=== PATIENT | male | born 1970 | race Caucasian/White ===

== ENCOUNTER 2018-10-27 18:20 | Emergency (ER) | payer BC, OTHER ==
[2018-10-27] MEDS ORDERED: IBUPROFEN 600 MG TAB PO ONE ×2 (19:04→19:08)
--- NOTE | 2018-10-27 19:06 | EDPHY ---
H & P Stated Complaint: fall, L knee, elbow and face injury Time Seen by Provider: 10/27/18 19:06 HPI/ROS: HPI: This is a 48-year-old male who presents with Chief Complaint: Fall on the ice, eyebrow laceration, left knee injury, left elbow injury Location: Eyebrow, left knee, left elbow Quality: Injury Duration: 1 hr prior to arrival Signs and Symptoms: No bleeding, + radiation, no numbness, no weakness, no tingling, no incontinence, + decreased range of motion, no swelling, + pain, no fever Timing: Acute Severity: Moderate Context: Patient is right-hand dominant presents with accidentally slipping on the ice on the way to his daughter's concert and falling directly onto his left elbow, left knee and left zoroastrianism. Denies LOC/neck pain/dizziness/nausea/ vomiting/amnesia. Patient reports that he "was dazed" for a few seconds but had no loss of consciousness. Patient was ambulatory at the scene and called his . Patient reports that he has an aching headache over his left eye/ zoroastrianism area but not the worse headache of his life and no thunderclap symptoms. Denies any neck pain or decreased range of motion. No history of concussions in the past. Patient complains of pain in his left elbow with swelling and radiation of the pain down into his left hand. Patient also complains of pain in his left knee with decreased range of motion with accompanied stiffness and swelling. Patient reports pain is increased with weight-bearing on the left lower extremity. Reports tetanus is current. Modifying Factors: Direct pressure Comment: ROS: A comprehensive 10 system review of systems is otherwise negative aside from elements mentioned in the history of present illness. MEDICAL/SURGICAL/SOCIAL HISTORY: pmh- hemochromatosis psh- liver biopsy Social history: , employed, denies drug/alcohol/tobacco use CONSTITUTIONAL: Well-developed, well-nourished talkative middle-aged white male , awake and alert, no obvious distress HEENT: 1/4 cm linear, superficial, simple laceration in left eyebrow with no active bleeding. normocephalic, PERRL, EOMI. no globe entrapment, no raccoon eyes. no Moraes signs. Supra left orbital swelling and bruising noted. Able to open eyes fully. Tympanic membranes clear. No tympanic membrane rupture. Nares patent; no septal hematoma. Oropharynx clear, no exudate and moist pink mucosa. No malocclusion. no dental trauma. Airway patent. No lymphadenopathy. NECK: supple, no midline tenderness, flexion 45 degrees, extension 45 degrees, right and left lateral flexion 45 degrees. No meningismus. Cardiovascular: Normal S1/S2, regular rate, regular rhythm, without murmur rub or gallop. PULMONARY/CHEST: Symmetrical and nontender. no crepitus. Clear to auscultation bilaterally. Good air movement. No accessory muscle usage. ABDOMEN: Soft, nondistended, nontender, no ecchymosis, no rebound, no guarding , no peritoneal signs, no masses or organomegaly. No CVAT. PELVIC: no pain with rocking; bilateral hips flexion 125 degrees, extension 30 degrees, with no pain internal rotation and no pain external rotation. BACK: No midline tenderness, no paraspinous spasm, deep tendon reflexes 2/2, no pain with straight leg raise EXTREMITIES: 2/2 pulses, left ELBOW: Full extension to 180, flexion to 90, moderate tenderness over medial epicondyle, moderate tenderness over lateral epicondyle, moderate effusion. Left KNEE: Moderate effusion, no medial and lateral joint line tenderness, full extension to 180, flexion to 120. No pain with varus and valgus exam. No pain with anterior drawer or posterior drawer test. Extensor mechanism intact. no deformities, no clubbing, no cyanosis or edema. NEUROLOGICAL: no focal neuro deficits. GCS 15. SKIN: Warm and dry, no erythema. no rash. Good capillary refill. Source: Patient, Family () Exam Limitations: No limitations - Personal History Current Tetanus/Diphtheria Vaccine: Yes Current Tetanus Diphtheria and Acellular Pertussis (TDAP): Yes - Medical/Surgical History Hx Asthma: No Hx Chronic Respiratory Disease: No Hx Diabetes: No Hx Cardiac Disease: No Hx Renal Disease: No Hx Cirrhosis: No Hx Alcoholism: No Hx HIV/AIDS: No Hx Splenectomy or Spleen Trauma: No Other PMH: pmh- hemochromatosis. psh- liver biopsy - Social History Smoking Status: Never smoked Constitutional: Initial Vital Signs Temperature (C) 36.9 C 10/27/18 18:32 Heart Rate 63 10/27/18 18:32 Respiratory Rate 16 10/27/18 18:32 Blood Pressure 153/88 H 10/27/18 18:32 O2 Sat (%) 95 10/27/18 18:32 O2 Delivery Mode Room Air Allergies/Adverse Reactions: No Known Allergies Allergy (Unverified 10/27/18 18:31) Home Medications: Medication Instructions Recorded Cyclobenzaprine [Flexeril 10 MG 10 mg PO Q8 PRN #10 tab 10/27/18 (*)] Ondansetron Odt [Zofran Odt 4 mg 4 mg PO Q4 PRN #12 tab 10/27/18 (*)] oxyCODONE/APAP 5/325 [Percocet 1 - 2 tab PO Q4H PRN #10 tab 10/27/18 5/325 (*)] Medical Decision Making - Diagnostics Imaging Results: Imaging Impressions Elbow X-Ray 10/27/18 18:35 Impression: 1. No acute osseous abnormality seen left forearm and elbow. 2. Soft tissue contusion suspected along the dorsal aspect of the proximal ulnar shaft. Forearm X-Ray 10/27/18 18:35 Impression: 1. No acute osseous abnormality seen left forearm and elbow. 2. Soft tissue contusion suspected along the dorsal aspect of the proximal ulnar shaft. Knee X-Ray 10/27/18 19:14 Impression: 1. No acute osseous abnormality seen left knee. 2. Soft tissue contusion suspected over the distal quadriceps tendon. Procedures: Procedure: Laceration repair. Verbal consent was obtained from the patient. The 1/4 cm, simple, linear laceration on the left eyebrow was anesthetized in the usual fashion using 3 mL of 1% lidocaine with epinephrine. The wound was irrigated, draped and explored to its base with a gloved finger. There were no deep structures involved. No tendon injury was identified. The wound was repaired with #4, 6-0 Prolene. Good hemostasis was achieved and patient tolerated procedure well. Bacitracin clean sterile dressing applied. The procedure was performed by myself. ED Course/Re-evaluation: Vital signs reviewed and stable upon arrival. Based on NEXUS protocol, head CT imaging and cervical CT not indicated. Long discussion with patient and patient's and they politely declined head CT and cervical CT imaging. Left elbow x-ray and left knee x-ray ordered Given ibuprofen and Percocet. Ice pack applied. LET topical applied to the laceration over the left eyebrow; copiously irrigated Laceration repaired with #4, nonabsorbable sutures. Bacitracin and clean sterile dressing applied. Verbal and written wound care instructions provided. Left knee x-ray, left elbow x-ray, left forearm x-ray shows no acute fracture, dislocation. Long discussion at bedside to his regarding concussion precautions and signs and symptoms of a concussion and postconcussion syndrome. No signs of neurovascular compromise/tenting of skin/compartment syndrome/ extremities and joints examined above and below area of concern and are neurovascularly intact/concussion. This patient was seen under the supervision of my secondary supervising physician. Discussed this patient with Dr. Downs. Differential Diagnosis: Head injury including but not limited to concussion, skull fracture, intraparenchymal contusion, subarachnoid, subdural and epidural hematoma. - Data Points Medications Given: Discontinued Medications Ibuprofen (Motrin) 600 mg PO EDNOW ONE Stop: 10/27/18 19:09 Last Admin: 10/27/18 19:08 Dose: 600 mg Oxycodone/Acetaminophen (Percocet 5/325) 1 tab PO EDNOW ONE Stop: 10/27/18 19:15 Last Admin: 10/27/18 19:24 Dose: 1 tab Tetracaine/Epinephrine/Lidocaine (Let Gel Topical) 1 ea TP ONCE ONE Stop: 10/27/18 19:16 Last Admin: 10/27/18 19:26 Dose: 1 ea Departure - Departure Disposition: Home, Routine, Self-Care Clinical Impression: Closed head injury without loss of consciousness Qualifiers: Encounter type: initial encounter Qualified Code(s): S09.90XA - Unspecified injury of head, initial encounter Contusion of left eyebrow Qualifiers: Encounter type: initial encounter Qualified Code(s): S00.12XA - Contusion of left eyelid and periocular area, initial encounter Laceration of left eyebrow without complication Qualifiers: Encounter type: initial encounter Qualified Code(s): S01.112A - Laceration without foreign body of left eyelid and periocular area, initial encounter Sprain of left elbow Qualifiers: Encounter type: initial encounter Qualified Code(s): S53.402A - Unspecified sprain of left elbow, initial encounter Left knee sprain Qualifiers: Encounter type: initial encounter Involved ligament of knee: unspecified ligament Qualified Code(s): S83.92XA - Sprain of unspecified site of left knee, initial encounter Condition: Good Instructions: Oxycodone/Acetaminophen (By mouth), Cyclobenzaprine (By mouth), Ondansetron (By mouth), Care For Your Stitches (ED), Knee Sprain (ED), Laceration (ED), Black Eye (ED), Concussion (ED), Elbow Sprain (ED) Additional Instructions: You sustained a closed head injury and it is recommended that you observe concussion precautions. Please do not participate in any contact sports or moderate and strenuous activity until all symptoms have resolved or cleared by PCP/[facility]. Take Tylenol 650 mg every 4 hours and/or Ibuprofen 600 mg every 8 hours with food as needed for pain/headache. Take Zofran every 4-6 hours as needed for nausea, vomiting. Consume a minimum of 8-10 glasses of water or electrolyte fluid replacement drinks that include Gatorade, Powerade, Pedialyte. You are to be closely monitored and observed for the 12 hr following initial injury time. Please follow-up with primary care provider in 5-7 days. If symptoms last longer than 1 week, please follow-up with Dr. Dickey in the [facility]ussion [facility]. Return to the ER immediately if you have progressive headaches, neurologic deficits, gait abnormality, visual disturbance, slurred speech, or any other symptom that concerns you. Keep the dressing dry and in place for 48 hours. After 48 hours, you may remove the dressing; wash the site daily with mild soap and water; then pat dry. The x-rays obtained in the emergency department today demonstrate no evidence of an obvious fracture. Sometimes fractures are not obvious on the initial set of x-rays performed in the ED. For this reason, you should have repeat x-rays performed in 7-10 days if you are having any pain exclude the possibility of an occult fracture. Wound Care Follow-Up: Removal of sutures in [ 7 ] days. Suture removal is complimentary in uncomplicated cases. Infection or abnormal findings would require reevaluation by the MD. In that case, you may be billed. Referrals: Jed Langley MD [Primary Care Provider] - As per Instructions Areli Dickey MD [Medical Doctor] - As per Instructions Prescriptions: Cyclobenzaprine [Flexeril 10 MG (*)] 10 mg PO Q8 PRN #10 tab PRN Reason: Spasms Ondansetron Odt [Zofran Odt 4 mg (*)] 4 mg PO Q4 PRN #12 tab PRN Reason: Nausea/Vomiting, Use 1st oxyCODONE/APAP 5/325 [Percocet 5/325 (*)] 1 - 2 tab PO Q4H PRN #10 tab PRN Reason: Pain, Severe
[2018-10-27] MEDS ORDERED: OXYCODONE/APAP 5/325 TAB PO ONE (19:14)
[2018-10-27] MEDS ORDERED: LET GEL TOPICAL 1 EA SYR TP ONE (19:15)
[2018-10-27 20:46] VITALS: BP 121/75
== END 2018-10-27 21:04 | disposition home or self-care (01) ==
PROC: 0HQ1XZZ Repair Face Skin, External Approach (ICD-10-PCS; principal; 2018-10-27)
DX: S01.81XA Laceration without foreign body of other part of head, initial encounter (principal); S53.402A Unspecified sprain of left elbow, initial encounter; S83.92XA Sprain of unspecified site of left knee, initial encounter; W00.0XXA Fall on same level due to ice and snow, initial encounter